=== PATIENT | male | born 1990 | race Caucasian/White ===

== ENCOUNTER → 2022-12-29 13:13 | Outpatient (CLI) | payer SELFPAY ==
--- NOTE | ~2022-12-29 | CT_ITS ---
Non-contrast Head CT History: Headache,, Technique: Axial non-contrast imaging of the brain was performed. Dose reduction technique was used on this scan by utilizing automated exposure control and iterative reconstruction technique. The dose -length product (DLP) was 599.57 mGy-cm. Findings: There is no evidence of intracranial hemorrhage, mass lesion, or acute infarct. Brain par enchyma appears normal. The ventricles and subarachnoid spaces are normal in size. The calvarium ap pears normal. The visualized paranasal sinuses and mastoid air cells are clear. Impression: No significant abnormality seen. Reviewed, dictated and finalized at location . Impression: No significant abnormality seen.
== END ==
PROVIDERS: PCP Physician Assistant Medical; Visit Provider Physician Assistant Medical
DX: R51.9 Headache, unspecified (principal); R40.20 Unspecified coma
CPT/HCPCS: 70450

== ENCOUNTER 2023-08-03 08:30 | Outpatient (RCR) | payer OTHER, SELFPAY ==
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
--- NOTE | 2023-08-03 09:11 | OPREHPOC ---
Outpatient Therapy Plan of Care This is a Multidisciplinary Plan of Care that may contain components documented by all disciplines (PT, OT, and ST.) PT Problem 1 PT Problem #1 Knowledge Deficit PT Goal 1 Goal Independent with performance of the Mary Anne Maneuver . Target Visit 2 PT Problem 2 PT Problem #2 Impaired Vestibular Syste PT Goal 1 Goal Pt. will report less than 20% limitation on the DHI indicating improved funciton. Target Visit 2 PT Goal 2 Goal Pt. will provide reports of no dizziness in a 5-7 day period Target Visit 2
--- NOTE | 2023-08-24 08:47 | PCPTNOTE ---
Mr. Jose attended his initial evaluation on 08/03/23. He was scheduled for follow up on this date, however did not show for his appointment. Refer to his initial evaluation for discharge status. Manish Morales, MPT
--- NOTE | 2023-08-24 08:49 | PTOPDC ---
Assessment and note entered by Manish Morales Discharge Information Assessment Status Discharge - Pt Not Present Diagnosis dizziness, giddiness Onset 07/13/23 Assessment PT Clinical Summary Mr. Jose attended his initial evaluation on . He was scheduled for follow up on this date, however did not show for his appointment. Refer to his initial evaluation for discharge status.
== END 2023-08-24 10:06 | disposition home or self-care (01) ==
LOC: ANHPT 08:30
PROVIDERS: PCP Family Medicine; Visit Provider Physician Assistant Medical
DX: H81.12 Benign paroxysmal vertigo, left ear (principal)
CPT/HCPCS: 95992; 97161; 99199

== ENCOUNTER 2025-02-04 22:10 | Emergency (ER) | payer OTHER, SELFPAY ==
--- NOTE | ~2025-02-04 | XR_ITS ---
CHEST RADIOGRAPH, PA AND LATERAL CLINICAL HISTORY: cp . COMPARISON: None available TECHNIQUE: PA and lateral views of the chest. FINDINGS The cardiomediastinal silhouette is unremarkable. The lungs are clear. IMPRESSION: No focal infiltrate or effusion. Reviewed, dictated and finalized at location A.
--- OUTSIDE RECORDS SUMMARY | 2025-02-04 22:13 | XMS_ITS | Clinical Summary ---
Author Organization [facility] Address [address] [place] [address] Care Team Providers Care Mink Farmer Name Role Phone Unavailable Primary Care Provider Unavailabl e Source Comments [facility],non-owned Affiliates and Associated Physician Practices is amultiple site organization consisting of ambulatory clinics and hospital sitesin [place], [place], [place] and [place]. This disclosure is being madepursuant to the Care Everywhere program and may not contain all information available regarding this patient. Last updated 18.[facility] Medications * Be aware that medications may not be up to date on this document. Alwaysverify current medications with the patient. cetirizine (ZyrTEC ALLERGY) 10 MG gel capsule Take 10 mg by mouth once daily Active albuterol HFA (ProAir HFA) 108 (90 Base) MCG/ACT inhaler Inhale 2 (two) puffs by mouth every 4 hours as needed 8.5 g 5 03/15/2022 Active Social History Tobacco Use Types Packs/Day Years Used Date Smoking Tobacco: Never Smokeless Tobacco: Never Alcohol Use Standard Drinks/Week Comments Yes 0 (1 standard drink = 0.6 oz pur e alcohol) Sex and Gender Information Value Date Recorded Sex Assigned at Not on file Legal Sex Male 8:39 AM CDT Gender Identity Not on file Sexual Orientation Not on file Last Filed Vital Signs Vital Sign Reading Time Taken Comments Blood Pressure - - Pulse - - Temperature - - Respiratory Rate - - Oxygen Saturation - - Inhaled Oxygen Concentration - - Weight 93 kg (205 lb) 03/15/2022 10:18 AM CDT Height 177.8 cm (5' 10) 03/15/2022 10:18 AM CDT Body Mass Index 29.41 03/15/2022 10:18 AM CDT Plan of Treatment Health Maintenance Due Date Last Done Comments HIV SCREENING 2005 HEPATITIS C SCREENING 03/09/2008 DTAP/TDAP/TD VACCINES (1 - Tdap) 2009 HEPATITIS B VACCINE (1 of 3 - 19+ 3-dose series) 2009 HPV VACCINE (1 - 3-dose SCDM series) 2017 COVID-19 VACCINE (1 - 2023-2 5 season) 2024 DEPRESSION SCREENING 07/04/2024 INFLUENZA VACCINE (#1) 2025 ZOSTER VACCINE (1 of 2) 2040 HIB VACCINE Aged Out No longer eligi ble based on patient's age to complete this topic MENINGOCOCCAL (Group B) VACC INE SHARED DECISION-MAKING Aged Out No longer eligibl e based on patient's age to complete this topic MENINGOCOCCAL GROUPS A/C/Y/W VACCINE Aged Out No longer eligible b ased on patient's age to complete this topic PNEUMOCOCCAL VACCINE Aged Out No long er eligible based on patient's age to complete this topic Insurance [employer] Member Subscriber Plan / Payer (Ef fective 2020-Present) Name:Washington Velasco Relation to Subscriber:Self Name:WASHINGTON VELASCO Payer ID:[id number] (NAIC) Type:PPO Address: [facility] [id number] [place] [id number]
--- OUTSIDE RECORDS SUMMARY | 2025-02-04 22:13 | XMS_ITS | Referral Summary ---
Author Organization [facility] Address [address] [place] [address] Care Team Providers Care Chemical Strength Tester Name Role Phone No, Physician Primary Care Provider [phone] Allergies Active Allergy Reactions Criticality Noted Date Comments Cefaclor Unknown 10/01/2022 Medications acetaminophen 500 mg capsule Take 2 capsules (1,000 mg total) by mouth every 6 (six) hours as needed for pain or fever 30 tablet 10/02/2022 Active Active Problems Problem Noted Date Diagnosed Date Sialoadenitis of submandibular gland 10/02/2022 Assessment & Plan (10/02/2022 6:37 AM CDT): Bilateral submandibular swelling on exam, and bilateral submandibular gland sialoadenitis noted on neck CT Improving, cont sialogogues and warm compresses Cellulitis of neck 10/01/2022 Sepsis due to cellulitis 10/01/2022 Assessment & Plan (10/02/2022 6:36 AM CDT): -met sepsis criteria on admission with reported fevers up to 104, HR >90 and WBC count >12K in setting of cellulitis/SSTI - remains afebrile, white count improved, cellulitis much improved on exam today - blood cultures from [place] urgent care remain negative - d/c home on Bactrim and Keflex, increase dose of Bactrim to 2 DS tabs BID. Treat for an additional 7 days Assessment & Plan (10/01/2022 6:50 AM CDT): -meets sepsis criteria with reported fevers up to 104, HR >90 and WBC count >12K in setting of cellulitis/SSTI -initial lactate <2 -blood cultures drawn in ER and he was given 2 g IV cefepime but he was not given any IVF or antipyrectics -will bolus with 1L IV LR now, then LR at 125/hr -toradol 30 mg IV x1 now, APAP 1g PO q6 prn -continue cefepime 2g IV q8 for now; may need to add vanc or clindamycin if no improvement as CA-MRSA may be a consideration (though Bactrim generally effective) -will attempt to get records from the urgent care he visited in [place], [place] -I doubt this is an allergic rxn as the erythema is spreading outward from the original site of infection but not elsewhere and eosinophil count is normal -will check MRSA nasal swab -check RPP given his report of family members with URI last week -given his reported hx of annual bouts or bronchitis and/or pneumonia, ? CVID or other immunodeficiency Acute hyponatremia 10/01/2022 Assessment & Plan (10/02/2022 6:35 AM CDT): -mild, pNa 133 -likely hypovolemic in setting of acute febrile illness -resolved with IVF Assessment & Plan (10/01/2022 7:38 AM CDT): -mild, pNa 133 -likely hypovolemic in setting of acute febrile illness -should improve with isotonic IVFs----->LR bolus then 125/hr x 8 hrs -repeat BMP in AM Social History Tobacco Use Types Packs/Day Years Used Date Smoking Tobacco: Never Tobacco Cessation:Counseling Given: Not Answered PHQ-2 Answer Date Recorded PHQ-2 Total Score (If total score is 3 or more points, staff should administer the PHQ-9) 0 10/01/2022 Personal Safety Answer Date Recorded Getting School Help Needed Not on file 11/05 Sex and Gender Information Value Date Recorded Sex Assigned at Not on file Legal Sex Male 1:38 AM CDT Gender Identity Not on file Sexual Orientation Not on file Last Filed Vital Signs Vital Sign Reading Time Taken Comments Blood Pressure 153/102 12/15/2022 1:10 PM CDT Pulse 92 12/15/2022 1:10 PM CDT Temperature 36.6 C (97.8 F) 12/15/2022 1:10 PM CDT Respiratory Rate 16 12/15/2022 1:10 PM CDT Oxygen Saturation 98% 12/15/2022 1:10 PM CDT Inhaled Oxygen Concentration - - Weight 93 kg (205 lb) 12/15/2022 1:10 PM CDT Height 177.8 cm (5' 10) 12/15/2022 1:10 PM CDT Body Mass Index 29.41 12/15/2022 1:10 PM CDT Plan of Treatment Not on file Insurance MEDICA [facility] [place] [id number] [facility] [address] [place] [address] [facility] Advance Directives For more information, please contact: [phone] * Full Code (Latest Code Status on File) Date Activated Date Inactivated Comments 10/01/2022 5:31 AM 10/02/2022 1:36 PM Care Teams Chemical Strength Tester Relationship Specialty Start Date End Date No, Physician PCP - General 10/01/22
--- OUTSIDE RECORDS SUMMARY | 2025-02-04 22:13 | XMS_ITS | Clinical Summary ---
Author Organization [facility] Address [address] [place] [address] Care Team Providers Care Precision Assembler Bench Name Role Phone No, Physician Primary Care Provider [phone] Allergies Active Allergy Reactions Criticality Noted Date [...] on exam today - blood cultures from [place] urgent care remain negative - d/c home [...] from the urgent care he visited in [place], [place] -I doubt this is an allergic [...] x 8 hrs -repeat BMP in AM Medical History Medical History Date Comments Asthma Bronchitis Pneumonia Social History Tobacco Use Types Packs/Day Years [...] on file Sexual Orientation Not on file Obstetrics History Last Filed Vital Signs Vital Sign Reading [...] 12/15/2022 1:10 PM CDT Plan of Treatment Health Maintenance Due Date Last Done Comments Hepatitis C Screening 1990 DTaP/Tdap/Td Vaccine (1 - Tdap) 2001 Varicella Vaccines (1 of 2 - 13+ 2-dose series) 2003 Hepatitis B Screening 2008 Regular Well Visit/Exam 18-64 2008 HPV Vaccines (1 - 3-dose SCD M series) 2017 Depression Screening 10/02/2023 10/01/2022 Influenza Vaccine (#1) 2025 Pneumococcal vaccine <65 Aged Out No longer eligible based on patient's age to complete this topic Insurance MED[place] MEDICA [facility] MEDICA [facility] [place] [id number] Advance Directives For more information, please contact: [phone] * Full Code (Latest Code Status on File) Date Activated Date Inactivated Comments 10/01/2022 5:31 AM 10/02/2022 1:36 PM Care Teams Precision Assembler Bench Relationship Specialty Start Date End Date No, Physician PCP - General 10/01/22
[2025-02-04 22:55] VITALS: BP 127/97; PULSE 120; RESP 18; TEMP 36.7; O2SAT 96
--- NOTE | 2025-02-04 22:58 | ECG_ITS ---
Test Date: 2025-02-04 23:02:24 Measurements Intervals Bernard Rate: 114 P: 48 IA: 144 QRS: -11 QRSD: 94 T: -6 QT: 327 QTc: 450 Interpretive Statements SINUS TACHYCARDIA INFERIOR INFARCT, AGE INDETERMINATE BASELINE ARTIFACT- I, II, AVR, AVF ABNORMAL ECG No previous ECG available for comparison Electronically Signed On 02-05-2025 06:25:40 CDT by Alvaro Mejia D.O.
[2025-02-04 23:14] LABS: Hematocrit 42.6 % (42.0-52.0); Hemoglobin 14.5 g/dL (14.0-18.0); Immature Granulocyte Percent A 0.5 % (0-0.5); Lymphocytes Absolute Auto 0.97 K/mm3 (0.9-3.2); Mean Corpuscular HGB Conc 34.0 g/dl (32-36); Mean Corpuscular Hemoglobin 34.9 pg (26-34); Mean Corpuscular Volume 102.7 fl (80-100); Nucleated Red Blood Cells Absolute Auto 0.000 K/mm3 (0.0-0.012); Nucleated Red Blood Cells Perc 0.0 % (0.0-0.2); Platelet Count Result 127 k/mm3 (150-375); Red Blood Count 4.15 M/mm3 (4.6-6.20); White Blood Count 8.6 K/mm3 (4.5-10.0)
[2025-02-04 23:46] LABS: INR 1.1; Prothrombin Time 14.3 Seconds (11.1-14.7)
[2025-02-04 23:47] LABS: Partial Thromboplastin Time 31.2 Seconds (22.3-36.8)
[2025-02-04 23:49] LABS: Alanine Aminotransferase 169 U/L (6-50); Albumin Level 4.8 g/dL (3.5-5.1); Alkaline Phosphatase 279 U/L (38-126); Anion Gap 20 mmol/L (4-12); Bilirubin,Total 6.8 mg/dL (0.2-1.3); Blood Urea Nitrogen 5 mg/dL (9-20); Calcium 9.1 mg/dL (8.4-10.2); Carbon Dioxide 21 mmol/L (22-30); Chloride 93 mmol/L (98-107); Estimated CRCL calculation 100 ml/min; Estimated Glomerular Filt Rate > 60; Glucose 176 mg/dL (65-110); Lipase 633 U/L (23-300); Potassium 3.6 mmol/L (3.4-5.0); Sodium 134 mmol/L (137-145); Total Protein 9.7 g/dL (6.3-8.2)
[2025-02-04 23:54] LABS: Aspartate Amino Transferase 744 U/L (17-59)
[2025-02-04 23:59] LABS: Troponin I 0.013 ng/mL (0.000-0.034)
--- OUTSIDE RECORDS SUMMARY | 2025-02-05 02:53 | XMS_ITS ---
Author Organization [facility] [place] ([address]) Address [address] [address] Care Team Providers Care Service Support Representative Name Role Phone Jackson Padilla Unavailable [phone] [employer], Provider Unavailable Unavailab le Allergies Allergen (clinical drug ingredient) Drug/Non Drug Allergy documented on EMR Reaction Allergy Type Onset Date Status CECLOR (uncoded) Unknown Allergy Act ranjan REASON [facility] VISIT [facility] Encounter Medications Medication SIG (Take, Route, Frequency, Duration) Notes Start Date End Date Status AEROCHAMBER MDI SPACER - MOUTHPIECE (ADULT) N/A DIRECTED PO PER ASTHMA ACTION PLAN; Duration: 30 DAY(S) *Please review for potential replacement for e-prescription and drug interaction check* Active ALBUTEROL (EQV-PROAIR HFA) 90 MCG/INH 2 PUFF(S) INHALED EVERY 6 HOURS; Duration: 30 DAY(S) *Please review for potential replacement for e-prescription and drug interaction check* Active Breo Ellipta 200 MCG-25 MCG/INH 1 PUFF(S) INHALED ONCE A DAY; Duration: 30 *Please review and pick correct [facility]ulat ion [facility]. If intended option is not shown, discontinue and re-order from Quick Search* Not-Taking AEROCHAMBER PLUS USE WITH INHALER *Please review for potential replacement for e-prescription and drug interaction check* Not-Taking predniSONE 20 MG Call MD for instructions orally Call MD for frequency Not-Taking Patanase 665 MCG/INH 2 SPRAY(S) INTRANASALLY 2 TIMES A DAY; Duration: 30 DAY(S) *Please review and pick correct strength-formulat ion from [employer] options. If intended option is not shown, discontinue and re-order from Quick Search* Active EpiPen 2-Enoch 0.3 MG/0.3ML 0.3 mg intramuscularly once; Duration: 30 day(s) Active ZyrTEC Allergy 10 MG 1 tab(s) orally once a day; Duration: 0 Active Flonase Allergy Relief 50 MCG/ACT 2 spray(s) intranasally once a day; Duration: 30 day(s) Active PROAIR HFA CFC FREE 90 MCG/INH 2 PUFF(S) INHALED Q4-6 HOURS, PRN AND PER THE ASTHMA ACTION PLAN; Duration: 30 DAY(S) *Please review for potential replacement for e-prescription and drug interaction check* Not-Taking Breo Ellipta 200 MCG-25 MCG/INH 1 PUFF(S) INHALED ONCE A DAY; Duration: 30 DAY(S) *Please review and pick correct strength-formulat ion from [employer] options. If intended option is not shown, discontinue and re-order from Quick Search* Active Encounters Encounter Location Date Provider Diagnosis YANIQUE Garcia [address] [address] 12/17/2023 Provider Leon Cough, unspecified R05.9 and Allergic rhinitis due to pollen J30.1 Assessments Encounter Date Diagnosis (ICD Code) Assessment Notes Treatment Notes Treatment Clinical Notes Section Notes 12/17/2023 Cough, unspecified (ICD-10 - R05.9) 12/17/2023 Allergic rhinitis due to pollen (ICD-10 - J30.1) Plan Of Treatment Medication Medication Name Sig Start Date Stop Date Notes AEROCHAMBER MDI SPACER - MOUTHPIECE (ADULT) N/A DIRECTED PO PER ASTHMA ACTION PLAN; Duration: 30 DAY(S) *Please review for potential replacement for e-prescription and drug interaction check* ALBUTEROL (EQV-PROAIR HFA) 90 MCG/INH 2 PUFF(S) INHALED EVERY 6 HOURS; Duration: 30 DAY(S) *Please review for potential replacement for e-prescription and drug interaction check* Patanase 665 MCG/INH 2 SPRAY(S) INTRANAS ALLY 2 TIMES A DAY; Duration: 30 DAY(S) *Please review and pick correct strength-formulation from [employer] options. If intended option is not shown, discontinue and re-order from Quick Search* EpiPen 2-Enoch 0.3 MG/0.3ML 0.3 mg intramuscularly once; Duration: 30 day(s) ZyrTEC Allergy 10 MG 1 tab(s) orally onc e a day; Duration: 0 Flonase Allergy Relief 50 MCG/ACT 2 spray(s) intranasally once a day; Duration: 30 day(s) Breo Ellipta 200 MCG-25 MCG/INH 1 PUFF(S) INHALED ONCE A DAY; Duration: 30 DAY(S) *Please review and pick correct strength-formulation from [facility] options. If intended option is not shown, discontinue and re-order from Quick Search* Progress Notes * Washington JOSE MDOB: [birth year] (34 yo M)Acc No.[id number]:12/17/2023 Patient: Washington BLAKE Provider: Devon Raymond :1990 A ge:33 Y S ex:Male Date:12/17/2023 Address:[facility] [address] [facility] Subjective: * Chief Complaints: * 1 . [facility] En[facility]. * Medical History: * Medications: N ot-Taking/PRN PROAIR HFA CFC FREE 90 MCG/INH AEROSOL 2 PUFF(S) INHALED Q4-6 HOURS, PRN AND PER THE ASTHMA ACTION PLAN , Notes to Pharmacist: *Please review for potential replacement for e-prescription and drug interaction check*, Not- Taking/PRN predniSONE 20 MG Tablet Call MD for instructions orally Call MD for frequency , Not-Taking/PRN AEROCHAMBER PLUS USE WITH INHALER , Notes to Pharmacist: *Please review for potential replacement for e-prescription and drug interaction check*, Not-Taking/PRN Breo Ellipta 200 MCG-25 MCG/INH POWDER 1 PUFF(S) INHALED ONCE A DAY , Notes to Pharmacist: *Please review and pick correct strength-formulation from [employer] options. If intended option is not shown, discontinue and re-order from Quick Search* * Allergies: C ECLOR. Objective: * Vitals: Assessment: * Assessment: 1. C ough, unspecified - R05.9 (Primary) 2 . A llergic rhinitis due to pollen - J30.1 Plan: * Treatment: 2. A llergic rhinitis due to pollen Continue Flonase Allergy Relief Suspension, 50 MCG/ACT, 2 spray(s), intranasally, once a day, 30 day(s), 1, Refills 3; C ontinue ZyrTEC Allergy Tablet, 10 MG, 1 tab(s), orally, once a day, 0, tab(s); C ontinue EpiPen 2-Enoch Solution Auto-injector, 0.3 MG/0.3ML, 0.3 mg, intramuscularly, once, 30 day(s), 1, Refills 0; C ontinue Patanase SPRAY, 665 MCG/INH, 2 SPRAY(S), INTRANASALLY, 2 TIMES A DAY, 30 DAY(S), 1, Refills 3, Notes to Pharmacist: *Please review and pick correct strength-formulation from [employer] options. If intended option is not shown, discontinue and re-order from Quick Search*. * Billing Information: * Visit Code: * Procedure Codes: * Electronic signature of Chantel RODRIGUEZ-Migration on 02/05/2025 at 02:53 AM CDT Sign off status: Pending * Provider: Devon poole Migration Date: 0 12/17/2023 Generated for Eulalia yadav/Mik/Varunitting on: 0 02/05/2025 02:53 AM CDT
--- OUTSIDE RECORDS SUMMARY | 2025-02-05 02:53 | XMS_ITS | Patient Health Record ---
Author Organization [facility] [place] ([address]) Address [address] [place] [address] Care Team Providers Care Staking Engineer Name Role Phone Jackson Padilla Unavailable [phone] Allergies Allergen (clinical drug ingredient) Drug/Non Drug Allergy documented on EMR Reaction Allergy Type Onset Date Status CECLOR (uncoded) Unknown Allergy Act ranjan Reason For Referral No Information Medications Medication SIG (Take, Route, Frequency, Duration) Notes Start Date End Date Status Breo Ellipta 200 MCG-25 MCG/INH 1 PUFF(S) INHALED ONCE A DAY; Duration: 30 *Please review and pick correct strength-formulat ion from [employer] options. If intended option is not shown, discontinue and re-order from Quick Search* Not-Taking AEROCHAMBER PLUS USE WITH INHALER *Please review for potential replacement for e-prescription and drug interaction check* Not-Taking predniSONE 20 MG Call MD for instructions orally Call MD for frequency Not-Taking PROAIR HFA CFC FREE 90 MCG/INH 2 PUFF(S) INHALED Q4-6 HOURS, PRN AND PER THE ASTHMA ACTION PLAN; Duration: 30 DAY(S) *Please review for potential replacement for e-prescription and drug interaction check* Not-Taking PATANASE 665 mcg/inh 2 spray(s) intranasally 2 times a day; Duration: 30 day(s) Active Patanase 665 MCG/INH 2 SPRAY(S) INTRANASALLY 2 TIMES A DAY; Duration: 30 DAY(S) *Please review and pick correct strength-formulat ion from [employer] options. If intended option is not shown, discontinue and re-order from Quick Search* Active EPIPEN 2-ENOCH 0.3 mg 0.3 mg intramuscularly once; Duration: 30 day(s) Active EpiPen 2-Enoch 0.3 MG/0.3ML 0.3 mg intramuscularly once; Duration: 30 day(s) Active ZYRTEC 10 mg 1 tab(s) orally once a day; Duration: 0 Active ZyrTEC Allergy 10 MG 1 tab(s) orally once a day; Duration: 0 Active FLONASE 50 mcg/inh 2 spray(s) intranasally once a day; Duration: 30 day(s) Active Flonase Allergy Relief 50 MCG/ACT 2 spray(s) intranasally once a day; Duration: 30 day(s) Active Breo Ellipta 200 MCG-25 MCG/INH 1 PUFF(S) INHALED ONCE A DAY; Duration: 30 DAY(S) *Please review and pick correct strength-formulat ion from [employer] options. If intended option is not shown, discontinue and re-order from Quick Search* Active AEROCHAMBER MDI SPACER - MOUTHPIECE (ADULT) N/A DIRECTED PO PER ASTHMA ACTION PLAN; Duration: 30 DAY(S) *Please review for potential replacement for e-prescription and drug interaction check* Active ALBUTEROL (EQV-PROAIR HFA) 90 MCG/INH 2 PUFF(S) INHALED EVERY 6 HOURS; Duration: 30 DAY(S) *Please review for potential replacement for e-prescription and drug interaction check* Active BREO ELLIPTA 200 mcg-25 mcg/inh 1 puff(s) inhaled once a day; Duration: 30 Not-Taking BREO ELLIPTA 200 mcg-25 mcg/inh 1 puff(s) inhaled once a day; Duration: 30 day(s) Active PREDNISONE 20 mg Call MD for instructions orally Call MD for frequency Not-Taking Immunizations Vaccine Route Administration Date Status Comme nts Influenza Unknown 08/15/2017 Refused NOC Fluzone Quadrivalent Unknown 09/18/2018 Refused Social History Tobacco Use: Social History Observation Description Date Details (start date - stop date) Never Smoker NA - NA Smoking Smart Form: Question Answer Notes Are you a: never smoker Problems Problem Type SNOMED Code ICD Code Onset Dates Problem Status W/U Status Risk Notes Problem Information temporarily unavailable Wheezing (R06.2) Active confirmed Problem Information temporarily unavailable Other chronic allergic conjunctivitis (H10.45) Active confirmed Problem Information temporarily unavailable Allergic rhinitis due to pollen (J30.1) Active confirmed Problem Information temporarily unavailable Allergic rhinitis due to animal (cat) (dog) hair and dander (J30.81) Active confirmed Problem Information temporarily unavailable Other allergic rhinitis (J30.89) Active confirmed Problem Information temporarily unavailable Elevated blood-pressure reading, without diagnosis of hypertension (R03.0) Active confirmed Problem Information temporarily unavailable Cough (R05) Active confirmed Problem Information temporarily unavailable Adverse effect of cephalosporins and other beta-lactam antibiotics, initial encounter (T36.1X5A) Active confirmed Problem Information temporarily unavailable Adverse effect of cephalosporins and other beta-lactam antibiotics, subsequent encounter (T36.1X5D) Active confirmed Problem Information temporarily unavailable Allergic rhinitis due to pollen (J30.1) Active confirmed Problem Information temporarily unavailable Allergic rhinitis due to animal (cat) (dog) hair and dander (J30.81) Active confirmed Problem Information temporarily unavailable Other allergic rhinitis (J30.89) Active confirmed Problem Information temporarily unavailable Other chronic allergic conjunctivitis (H10.45) Active confirmed Problem Information temporarily unavailable Cough, unspecified (R05.9) Active confirmed Plan Of Treatment No Information Medical (General) History Medical History History ICD Code Cough Wheezing Allergic rhinitis due to pollen Allergic rhinitis due to animal (cat) (d og) hair and dander Other allergic rhinitis Other chronic allergic conjunctivitis Adverse effect of cephalospo rins and other beta-lactam antibiotics, initial encounter Surgical History Surgery Date(Month/Year) Nose repair fx x 2 07/11/2014 Hospitalization History Reason Date(Month/Year) See surgical hx 2014
--- OUTSIDE RECORDS SUMMARY | 2025-02-05 02:53 | XMS_ITS | Referral Summary ---
Author Organization [facility] Address [address] [facility] [place] [address] Care Team Providers Care Legal Associate Name Role Phone No, Physician Primary Care Provider [phone] Allergies Active Allergy Reactions Criticality Noted Date [...] on exam today - blood cultures from [place] urgent care remain negative - d/c home [...] from the urgent care he visited in [place], [place] -I doubt this is an allergic [...] of Treatment Not on file Insurance MEDICA [facility] [place] [id number] [facility] [address] [place] [address] [facility] Advance Directives For more information, please contact: [phone] * Full Code (Latest Code Status on File) Date Activated Date Inactivated Comments 10/01/2022 5:31 AM 10/02/2022 1:36 PM Care Teams Legal Associate Relationship Specialty Start Date End Date No, Physician PCP - General 10/01/22
--- OUTSIDE RECORDS SUMMARY | 2025-02-05 02:53 | XMS_ITS | Clinical Summary ---
Author Organization [facility] Address [address] [place] [address] Care Team Providers Care Meter/Relay Technician Name Role Phone Unavailable Primary Care Provider Unavailabl e Source Comments [facility],non-owned Affiliates and Associated Physician Practices is amultiple site organization consisting of ambulatory clinics and hospital sitesin [place] and [place]. This disclosure is being madepursuant to the Care Everywhere program and may not contain all information available regarding this patient. Last updated 18.[facility] Medications * Be aware that medications may [...] Name:WASHINGTON VELASCO Payer ID:[id number] (NAIC) Type:PPO Address: [facility] [address] [place] [id number]
--- OUTSIDE RECORDS SUMMARY | 2025-02-05 02:53 | XMS_ITS | Clinical Summary ---
Author Organization [facility] Address [address] [place] [address] Care Team Providers Care Optometry Teacher Name Role Phone None, Provider MD Primary Care Provider Unavaila ble Allergies Active Allergy Reactions Criticality Noted Date Comments Cefaclor Anaphylaxis High 07/19/2023 Medications diazePAM (VALIUM) 2 MG tabletIndication s:Anxiety,Alcoho l withdrawal (CMS/HCC HHS/HCC) Take 1 tablet (2 mg total) by mouth every 6 (six) hours as needed for Anxiety. 6 tablet 07/19/2023 Active naproxen (NAPROSYN) 500 MG tablet Take 1 tablet (500 mg total) by mouth 2 (two) times daily with meals. 30 tablet 12/19/2024 Active methocarbamol (ROBAXIN) 750 MG Tab Take 1 tablet (750 mg total) by mouth every 4 (four) hours. 30 tablet 12/19/2024 Active Encounters Date Type Department Care Team Description 12/19/2024 4:21 PM CDT - 12/19/2024 5:54 PM CDT Emergency [facility] [place] [address] Rahat Gomez PA-C Leg Swelling Discharge Disposition: Home or Self Care (Routine Discharge) 12/19/2024 Travel from Last 3 Months Social History Tobacco Use Types Packs/Day Years Used Date Smoking Tobacco: Never Smokeless Tobacco: Never Tobacco Cessation:Counseling Given: Not Answered Alcohol Use Standard Drinks/Week Comments Yes 0 (1 standard drink = 0.6 oz pure alcohol) daily drinker - tequila - '3 drinks' Sex and Gender Information Value Date Recorded Sex Assigned at Male 12/19/2024 4:18 PM CDT Legal Sex Male 10:17 AM MILIEU MANAGER Gender Identity Not on file Sexual Orientation Not on file Last Filed Vital Signs Vital Sign Reading Time Taken Comments Blood Pressure 143/111 12/19/2024 4:14 PM CDT Pulse 102 12/19/2024 4:14 PM CDT Temperature 36.1 C (97 F) 12/19/2024 4:14 PM CDT Respiratory Rate 18 12/19/2024 4:14 PM CDT Oxygen Saturation 97% 12/19/2024 4:14 PM CDT Inhaled Oxygen Concentration - - Weight 88 kg (194 lb) 12/19/2024 4:14 PM CDT Height 177.8 cm (5' 10) 12/19/2024 4:14 PM CDT Body Mass Index 27.84 12/19/2024 4:14 PM CDT Plan of Treatment Health Maintenance Due Date Last Done Comments Annual Physical 1993 Hepatitis C 2008 DTaP, Tdap and Td Vaccines ( 1 - Tdap) 2009 Hepatitis B Vaccines (1 of 3 - 19+ 3-dose series) 2009 HPV Vaccines (1 - 3-dose SCD M series) 2017 COVID-19 Vaccine (2023-2 5 season) 2024 Meningococcal B Vaccine Aged Out No l onger eligible based on patient's age to complete this topic Meningococcal Vaccine Aged Out No jaime sandip eligible based on patient's age to complete this topic Pneumococcal Vaccine: Pediat rics (0 to 5 Years) and At-Risk Patients (6 to 49 Years) Aged Out No longer eligible b ased on patient's age to complete this topic RSV Immunizations Under 20 Months Aged Out No longer eligible based on patient's age to complete this topic Procedures Procedure Name Priority Date/Time Associated Diagnosis Comments XR TIBIA+FIBULA LT 2V STAT 12/19/2024 4:48 PM CDT XR KNEE LT 3V STAT 12/19/2024 4:48 PM CDT XR FEMUR LT 2V STAT 12/19/2024 4:48 PM CDT from Last 3 Months Results * XR TIBIA+FIBULA LT 2V (12/19/2024 4:48 PM CDT) Anatomical Region Laterality Modality TibFib Radiographic Yareli ging 12/19/2024 5:09 PM CDT Impressions 12/19/2024 5:22 PM CDT IMPRESSION: 1. Substantial soft tissue edema and probable hematoma along the medial aspect of the distal thigh to proximal leg over at least a 25 cm length and approximately 6.5 cm transverse dimension. 2. No appreciable fracture or dislocation. 3. Correlate with clinical exam and acquire advanced imaging such as CT or MRI if clinically indicated. Ordered By: RAHAT GOMEZ Interpreted By: Jose Martin Mccann, 12/19/2024 5:09 PM Narrative 12/19/2024 5:[address] [address] IMAGING STUDIES: XR FEMUR LT 2V, XR KNEE LT 3V, XR TIBIA+FIBULA LT 2V DATE: 12/19/2024 4:26 PM HISTORY: fall 34-year-old male. 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 Leg is reportedly purple and red-colored and has a lump near his knee. Able to walk with a limp. COMPARISON: None this institution. DISCUSSION: AP and lateral views of the left femur on 4 images. AP, oblique, and lateral views of the left knee. AP and lateral views of the left tibia and fibula on 4 images. No acute abnormality of the visualized pelvis or left hip. 6.5 mm benign bone island in the left ischium. Substantial soft tissue edema and probable hematoma along the medial aspect of the distal thigh to the proximal leg over at least a 25 cm length and approximately 6.5 cm transverse dimension. No femoral fracture. No appreciable suprapatellar effusion. No apparent fracture or dislocation at the knee. No apparent fracture of the tibia and fibula. No effusion, fracture, or dislocation at the ankle. No apparent fracture of the visualized hindfoot Procedure Note Jose Martin Mccann MD - 12/19/2024 [facility] [address] [place], [place] [address] IMAGING STUDIES: XR FEMUR LT 2V, XR KNEE LT 3V, XR TIBIA+FIBULA LT 2VDATE:12/19/2024 4:26 PM HISTORY: fall 34-year-old male. 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 Leg is reportedly purple andred-colored and has a lump near his knee. Able to walk with a limp. COMPARISON: None this institution. DISCUSSION: AP and lateral views of the left femur on 4 images. AP, oblique, andlateral views of the left knee. AP and lateral views of the left tibia andfibula on 4 images. No acute abnormality of the visualized pelvis or left hip. 6.5 mm benignbone island in the left ischium. Substantial soft tissue edema and probable hematoma along the medialaspect of the distal thigh to the proximal leg over at least a 25 cmlength and approximately 6.5 cm transverse dimension. No femoral fracture. No appreciable suprapatellar effusion. No apparentfracture or dislocation at the knee. No apparent fracture of the tibia andfibula. No effusion, fracture, or dislocation at the ankle. No apparent fractureof the visualized hindfoot IMPRESSION: 1. Substantial soft tissue edema and probable hematoma along the medialaspect of the distal thigh to proximal leg over at least a 25 cm lengthand approximately 6.5 cm transverse dimension. 2. No appreciable fracture or dislocation. 3. Correlate with clinical exam and acquire advanced imaging such as CT orMRI if clinically indicated. Ordered By: RAHAT GOMEZ Interpreted By: Jose Martin Mccann, 12/19/2024 5:09 PM us Rahat Gomez PA-C GENERAL IMAGING Final Resul t * XR KNEE LT 3V (12/19/2024 4:48 PM CDT) Anatomical Region Laterality Modality Knee Radiographic Yareli ging 12/19/2024 5:09 PM CDT Impressions 12/19/2024 5:22 PM CDT IMPRESSION: 1. Substantial soft tissue edema and probable hematoma along the medial aspect of the distal thigh to proximal leg over at least a 25 cm length and approximately 6.5 cm transverse dimension. 2. No appreciable fracture or dislocation. 3. Correlate with clinical exam and acquire advanced imaging such as CT or MRI if clinically indicated. Ordered By: RAHAT GOMEZ Interpreted By: Jose Martin Mccann, 12/19/2024 5:09 PM Narrative 12/19/2024 5:[address] PM [address] [address] IMAGING STUDIES: XR FEMUR LT 2V, XR KNEE LT 3V, XR TIBIA+FIBULA LT 2V DATE: 12/19/2024 4:26 PM HISTORY: fall 34-year-old male. 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 Leg is reportedly purple and red-colored and has a lump near his knee. Able to walk with a limp. COMPARISON: None this institution. DISCUSSION: AP and lateral views of the left femur on 4 images. AP, oblique, and lateral views of the left knee. AP and lateral views of the left tibia and fibula on 4 images. No acute abnormality of the visualized pelvis or left hip. 6.5 mm benign bone island in the left ischium. Substantial soft tissue edema and probable hematoma along the medial aspect of the distal thigh to the proximal leg over at least a 25 cm length and approximately 6.5 cm transverse dimension. No femoral fracture. No appreciable suprapatellar effusion. No apparent fracture or dislocation at the knee. No apparent fracture of the tibia and fibula. No effusion, fracture, or dislocation at the ankle. No apparent fracture of the visualized hindfoot Procedure Note Jose Martin Mccann MD - 12/19/[address] [address] IMAGING STUDIES: XR FEMUR LT 2V, XR KNEE LT 3V, XR TIBIA+FIBULA LT 2VDATE:12/19/2024 4:26 PM HISTORY: fall 34-year-old male. 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 Leg is reportedly purple andred-colored and has a lump near his knee. Able to walk with a limp. COMPARISON: None this institution. DISCUSSION: AP and lateral views of the left femur on 4 images. AP, oblique, andlateral views of the left knee. AP and lateral views of the left tibia andfibula on 4 images. No acute abnormality of the visualized pelvis or left hip. 6.5 mm benignbone island in the left ischium. Substantial soft tissue edema and probable hematoma along the medialaspect of the distal thigh to the proximal leg over at least a 25 cmlength and approximately 6.5 cm transverse dimension. No femoral fracture. No appreciable suprapatellar effusion. No apparentfracture or dislocation at the knee. No apparent fracture of the tibia andfibula. No effusion, fracture, or dislocation at the ankle. No apparent fractureof the visualized hindfoot IMPRESSION: 1. Substantial soft tissue edema and probable hematoma along the medialaspect of the distal thigh to proximal leg over at least a 25 cm lengthand approximately 6.5 cm transverse dimension. 2. No appreciable fracture or dislocation. 3. Correlate with clinical exam and acquire advanced imaging such as CT orMRI if clinically indicated. Ordered By: RAHAT GOMEZ Interpreted By: Jose Martin Mccann, 12/19/2024 5:09 PM us Rahat Gomez PA-C GENERAL IMAGING Final Resul t * XR FEMUR LT 2V (12/19/2024 4:48 PM CDT) Anatomical Region Laterality Modality Femur Radiographic Yareli ging 12/19/2024 5:09 PM CDT Impressions 12/19/2024 5:22 PM CDT IMPRESSION: 1. Substantial soft tissue edema and probable hematoma along the medial aspect of the distal thigh to proximal leg over at least a 25 cm length and approximately 6.5 cm transverse dimension. 2. No appreciable fracture or dislocation. 3. Correlate with clinical exam and acquire advanced imaging such as CT or MRI if clinically indicated. Ordered By: RAHAT G GOMEZ Interpreted By: Jose Martin Mccann, 12/19/2024 5:09 PM Narrative 12/19/2024 5:[address] PM [address] [address] IMAGING STUDIES: XR FEMUR LT 2V, XR KNEE LT 3V, XR TIBIA+FIBULA LT 2V DATE: 12/19/2024 4:26 PM HISTORY: fall 34-year-old male. 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 Leg is reportedly purple and red-colored and has a lump near his knee. Able to walk with a limp. COMPARISON: None this institution. DISCUSSION: AP and lateral views of the left femur on 4 images. AP, oblique, and lateral views of the left knee. AP and lateral views of the left tibia and fibula on 4 images. No acute abnormality of the visualized pelvis or left hip. 6.5 mm benign bone island in the left ischium. Substantial soft tissue edema and probable hematoma along the medial aspect of the distal thigh to the proximal leg over at least a 25 cm length and approximately 6.5 cm transverse dimension. No femoral fracture. No appreciable suprapatellar effusion. No apparent fracture or dislocation at the knee. No apparent fracture of the tibia and fibula. No effusion, fracture, or dislocation at the ankle. No apparent fracture of the visualized hindfoot Procedure Note Jose Martin Mccann MD - 12/19/[address] [address] IMAGING STUDIES: XR FEMUR LT 2V, XR KNEE LT 3V, XR TIBIA+FIBULA LT 2VDATE:12/19/2024 4:26 PM HISTORY: fall 34-year-old male. 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 Leg is reportedly purple andred-colored and has a lump near his knee. Able to walk with a limp. COMPARISON: None this institution. DISCUSSION: AP and lateral views of the left femur on 4 images. AP, oblique, andlateral views of the left knee. AP and lateral views of the left tibia andfibula on 4 images. No acute abnormality of the visualized pelvis or left hip. 6.5 mm benignbone island in the left ischium. Substantial soft tissue edema and probable hematoma along the medialaspect of the distal thigh to the proximal leg over at least a 25 cmlength and approximately 6.5 cm transverse dimension. No femoral fracture. No appreciable suprapatellar effusion. No apparentfracture or dislocation at the knee. No apparent fracture of the tibia andfibula. No effusion, fracture, or dislocation at the ankle. No apparent fractureof the visualized hindfoot IMPRESSION: 1. Substantial soft tissue edema and probable hematoma along the medialaspect of the distal thigh to proximal leg over at least a 25 cm lengthand approximately 6.5 cm transverse dimension. 2. No appreciable fracture or dislocation. 3. Correlate with clinical exam and acquire advanced imaging such as CT orMRI if clinically indicated. Ordered By: RAHAT GOMEZ Interpreted By: Jose Martin Mccann, 12/19/2024 5:09 PM Rahat Gomez PASiobhan GENERAL IMAGING Final Resul t from Last 3 Months Insurance [employer] Care Teams Optometry Teacher Relationship Specialty Start Date End Date None, Provider, PCP - General UNKNOWN PHYSICIAN SPECIALTY 07/19/23
--- OUTSIDE RECORDS SUMMARY | 2025-02-05 02:53 | XMS_ITS | Clinical Summary ---
Author Organization [facility] Address [address] [facility] [place] [address] Care Team Providers Care Production Control Analyst Name Role Phone No, Physician Primary Care Provider [phone] Allergies Active Allergy Reactions Criticality Noted Date [...] on exam today - blood cultures from [place] urgent care remain negative - d/c home [...] from the urgent care he visited in [place], [place] -I doubt this is an allergic [...] to complete this topic Insurance MEDICA [employer] [facility] MEDICA [facility] [place] [id number] Advance Directives For more information, please contact: [phone] * Full Code (Latest Code Status on File) Date Activated Date Inactivated Comments 10/01/2022 5:31 AM 10/02/2022 1:36 PM Care Teams Production Control Analyst Relationship Specialty Start Date End Date No, Physician PCP - General 10/01/22
== END 2025-02-05 03:00 | disposition left against medical advice (07) ==
LOC: ANHED 02-05 02:52
PROVIDERS: Emergency Provider Student in an Organized Health Care Education/Training Program; PCP Family Medicine
DX: R07.9 Chest pain, unspecified (principal)
CPT/HCPCS: 36415; 71046; 80053; 83605; 83690; 84484; 85025; 85610; 85730; 86850; 86900; 86901; 93005; 99199